=== PATIENT | female | born 1995 | race African-American/Black ===

== ENCOUNTER 2021-10-11 04:08 | Emergency (ER) | payer OTHER ==
[~2021-10-11] VITALS: Ht 167.6 cm; Wt 127.0 kg
[2021-10-11 05:31] LABS: BASOPHILS % 0.3 % (0.0-2.0); HEMATOCRIT. 28.8 % (36.0-48.0); HEMOGLOBIN. 8.8 g/dL (12.0-16.0); MEAN CORPUSCULAR VOLUME 65.4 fL (81.0-99.0); MEAN PLATELET VOLUME 6.8 fl (7.4-10.4); MONOCYTES % 6.3 % (2.0-8.0); NEUTROPHILS % 54.4 % (40.0-76.0); PLATELET 386 x1000/uL (130-400); RED CELL DISTRIBUTION WIDTH 19.2 % (11.6-14.6)
[2021-10-11 06:05] LABS: CHLORIDE 108 mEq/L (98-107)
[2021-10-11 06:09] LABS: ETHANOL BLOOD < 10 mg/dL
[2021-10-11 06:16] LABS: HCG SCREEN NEGATIVE
[2021-10-11 06:20] LABS: CLARITY URINE CLEAR (CLEAR); COLOR URINE DARK YELLOW (YELLOW); KETONES URINE TRACE (NEGATIVE); LEUKOCYTE ESTERASE URINE 1+ (NEGATIVE); NITRITE URINE NEGATIVE (NEGATIVE); OCCULT BLOOD URINE TRACE (NEGATIVE); PROTEIN URINE TRACE (NEGATIVE); SPECIFIC GRAVITY URINE 1.035 (1.005-1.030)
[2021-10-11 06:40] LABS: *BARBITURATES SCREEN URINE NEGATIVE (NEGATIVE); *BENZODIAZEPINES SCREEN URINE NEGATIVE (NEGATIVE); PHENCYCLIDINE URINE SCREEN NEGATIVE (NEGATIVE)
[2021-10-11 06:41] LABS: METHADONE URINE SCREEN NEGATIVE (NEGATIVE); OPIATES URINE SCREEN NEGATIVE (NEGATIVE)
[2021-10-11 06:53] LABS: *AMPHETAMINES SCREEN URINE PRESUMTIVE POSITIVE (NEGATIVE); *COCAINE SCREEN URINE PRESUMTIVE POSITIVE (NEGATIVE); CANNABINOID URINE SCREEN PRESUMTIVE POSITIVE (NEGATIVE)
[2021-10-11 07:20] LABS: PLATELET ESTIMATE NORMAL
[2021-10-11] MEDS: NITROFURANTOIN 100MG M/M CAPSULE PO SCH ×2 (13:59→21:26)
[2021-10-11] MEDS ORDERED: HALOPERIDOL LACTATE 5MG/ML VIAL IM ONE (19:30)
[2021-10-11] MEDS ORDERED: TRAZODONE HCL 50MG TABLET PO SCH (21:00)
[2021-10-11] MEDS ORDERED: PRAZOSIN HCL 1MG CAPSULE PO ONE (21:00)
[2021-10-11] MEDS: OLANZAPINE 5MG TABLET PO SCH (21:25)
[2021-10-12] MEDS: OLANZAPINE 5MG TABLET PO SCH (08:26)
[2021-10-12] MEDS: NITROFURANTOIN 100MG M/M CAPSULE PO SCH (08:26)
[2021-10-12] MEDS ORDERED: SERTRALINE HCL 50MG TABLET PO SCH (09:00)
[2021-10-12 17:45] VITALS: BP 100/51
[2021-10-12] MEDS ORDERED: OLANZAPINE 5MG TABLET PO SCH (21:00)
== END 2021-10-12 18:13 ==
LOC: ER 04:23
DX: F25.9 Schizoaffective disorder, unspecified (principal); N39.0 Urinary tract infection, site not specified; D64.9 Anemia, unspecified; R45.851 Suicidal ideations; F32.A Depression, unspecified; F14.10 Cocaine abuse, uncomplicated; F12.10 Cannabis abuse, uncomplicated; Z20.822 Contact with and (suspected) exposure to COVID-19; Z59.00 Homelessness unspecified
CPT/HCPCS: 36415; 80053; 80305; 80307; 80320; 80329; 81003; 81025; 84703; 85025; 96372; 99285; C9803; J1630; U0003; U0005; G0480

== ENCOUNTER 2021-11-12 08:43 | Emergency (ER) | payer OTHER ==
[~2021-11-12] VITALS: Ht 167.6 cm; Wt 82.0 kg
[2021-11-12 08:45] VITALS: BP 129/73
[2021-11-12 09:05] LABS: CLARITY URINE CLOUDY (CLEAR); COLOR URINE ORANGE (YELLOW); KETONES URINE TRACE (NEGATIVE); LEUKOCYTE ESTERASE URINE 1+ (NEGATIVE); NITRITE URINE NEGATIVE (NEGATIVE); OCCULT BLOOD URINE 3+ (NEGATIVE); PH URINE 6.5 (4.5-8.0); PROTEIN URINE 2+ (NEGATIVE); SPECIFIC GRAVITY URINE 1.019 (1.005-1.030); UROBILINOGEN URINE 0.2 E.U./dL (0.2-1.0)
[2021-11-12 09:21] LABS: *BARBITURATES SCREEN URINE NEGATIVE (NEGATIVE); *BENZODIAZEPINES SCREEN URINE NEGATIVE (NEGATIVE); *COCAINE SCREEN URINE NEGATIVE (NEGATIVE); METHADONE URINE SCREEN NEGATIVE (NEGATIVE); OPIATES URINE SCREEN NEGATIVE (NEGATIVE)
[2021-11-12 09:22] LABS: PHENCYCLIDINE URINE SCREEN NEGATIVE (NEGATIVE)
[2021-11-12 09:26] LABS: *AMPHETAMINES SCREEN URINE PRESUMTIVE POSITIVE (NEGATIVE); CANNABINOID URINE SCREEN PRESUMTIVE POSITIVE (NEGATIVE)
[2021-11-12 11:59] LABS: EOSINOPHILS % 0.2 % (0.0-5.0); HEMATOCRIT. 29.8 % (36.0-48.0); LYMPHOCYTES % 25.1 % (20.0-50.0); MEAN CORPUSCULAR HEMOGLOBIN 19.6 pg (28.0-32.0); MEAN CORPUSCULAR VOLUME 64.4 fL (81.0-99.0); MEAN PLATELET VOLUME 6.8 fl (7.4-10.4); MONOCYTES % 4.3 % (2.0-8.0); NEUTROPHILS % 69.4 % (40.0-76.0); PLATELET 480 x1000/uL (130-400); RED BLOOD CELL COUNT 4.62 mill/uL (4.2-5.4); RED CELL DISTRIBUTION WIDTH 18.7 % (11.6-14.6)
[2021-11-12 12:03] LABS: CHLORIDE 107 mEq/L (98-107)
[2021-11-12 12:14] LABS: B-HCG QUANTITATIVE < 1 mIU/mL (<3)
[2021-11-12 12:39] LABS: PLATELET ESTIMATE INCREASED
== END 2021-11-12 12:36 | disposition left against medical advice (07) ==
LOC: ER 08:43
DX: N39.0 Urinary tract infection, site not specified (principal); D64.9 Anemia, unspecified; F15.10 Other stimulant abuse, uncomplicated; Z86.59 Personal history of other mental and behavioral disorders
CPT/HCPCS: 36415; 76830; 76856; 80053; 80305; 81003; 81025; 84702; 85025; 86850; 86900; 99284